=== PATIENT | female | born 1990 | race Caucasian/White ===

== ENCOUNTER 2025-02-08 07:05 | Emergency (ER) | payer OTHER, SELFPAY ==
[2025-02-08 07:15] VITALS: BP 137/85; PULSE 78; RESP 18; TEMP 36.9; O2SAT 97; BMI 34.2
--- NOTE | 2025-02-08 07:22 | XR_ITS ---
Examination: CT thoracic spine, without contrast. 2-D sagittal reconstructions. 2-D coronal reconstructions. 3-D reconstructions. Date and time of exam:February 08, 2025 0818 hours INDICATIONS: Upper back pain beginning 3 days ago CTDI: vol (mGy):45.6 DLP: (mGycm):1795 Technique: Multiple 1.25 mm axial sections of the thoracic spine without intravenous contrast have been obtained. 2-D sagittal and coronal reconstructions have been obtained. 3-D reconstructions have been obtained. Low dose protocols were performed. One or more of the following dose reduction techniques were used; automated exposure control, adjustment of the mA and/or KV according to patient size, use of iterative reconstruction technique. Findings: Adequate alignment thoracic vertebral bodies No thoracic vertebral body fracture Thoracic pedicles, laminae, transverse and posterior spinous processes intact Mild diffuse thoracic disc narrowing No focal thoracic disc protrusion IMPRESSION: No thoracic fracture No focal thoracic disc protrusion Mild diffuse thoracic degenerative disc disease If pain persists, consider MRI thoracic spine without contrast follow-up
[2025-02-08] MEDS: KETOROLAC INJ 60 MG/2 ML VIAL 30 MG IM (07:49)
[2025-02-08] MEDS: DEXAMETHASONE SOD PHOS INJ 10 MG/ML VIAL IM (07:51)
--- NOTE | 2025-02-08 08:39 | EDNOTE_ITS ---
ED Back Injury Pain RME/HPI General Chief Complaint: Extremity Injury, Upper Stated Complaint: RIGHT SHOULDER PAIN Time Seen by Provider: 02/08/25 07:08 Arrival date/time: 02/08/25 07:05 This is a case of 34-year-old female who came in in the emergency room due to mid back pain radiating to the right shoulder with tingling sensation no numbness no weakness for 1 week patient denies any injury or trauma denies any numbness weakness tingling sensation or incontinence to urine or stool Limitations: no limitations Related Data Previous Rx's ?Medication ?Instructions ?Recorded baclofen 10 mg tablet 10 mg PO TID PRN muscle spas m #20 02/08/25 tabs hydrocodone 5 mg-acetaminophen 325 1 tab PO Q6H PRN pa in #15 tabs 02/08/25 mg tablet ibuprofen 800 mg tablet 800 mg PO Q8H PRN pain #20 t abs 02/08/25 Allergies Allergy/AdvReac Type Severity Reaction Status Date / Time sulfamethoxazole Allergy Intermediate RASH Verified 01/31/14 10:09 trimethoprim Allergy Intermediate RASH Verified 01/31/14 10:09 Review of Systems Review of Systems Systems Reviewed: All systems reviewed, normal except as documented Constitutional Constitutional: Reports system reviewed and no additional complaints, except as documented ENT Ears, Nose, Mouth, and Throat: Denies neck pain Cardiovascular Cardiovascular: Reports system reviewed and no additional complaints, except as documented Gastrointestinal Gastrointestinal: Reports system reviewed and no additional complaints, except as documented Musculoskeletal Musculoskeletal: Reports system reviewed and no additional complaints, except as documented, Reports as per HPI, Denies abnormal gait, Denies arthralgias, Denies atrophy, Reports back pain, Denies deformity, Denies joint swelling, Denies limited range of motion, Denies loss of height, Denies muscle cramps, Denies muscle weakness, Denies myalgias, Denies neck pain, Denies numbness, Denies radiating pain into limb, Denies stiffness and Reports tingling Neurologic Neurologic: Reports system reviewed and no additional complaints, except as documented, Reports as per HPI, Denies abnormal gait, Denies numbness and Reports tingling Past Medical History Past Medical History CARDIAC: Negative Congestive Heart Failure RESPIRATORY: Negative Chronic Obstructive Pulmonary Disease (COPD) GENITOURINARY: Negative Renal Disease ENDOCRINE: Negative Diabetes Mellitus Type 1 or Diabetes Mellitus Type 2 Social History SMOKING STATUS: Never smoker ED Exam General Limitations: Present no limitations General appearance: Present alert and in no apparent distress; Absent appears intoxicated Head Head exam: Present atraumatic Eye Eye exam: Present normal appearance, PERRL and EOMI ENT ENT exam: Present normal exam, normal oropharynx and mucous membranes moist Neck Neck exam: Present normal inspection, full ROM and trachea midline; Absent tenderness, meningismus, lymphadenopathy or thyromegaly Chest Chest inspection: Present normal inspection and symmetric chest wall rise; Absent tenderness or rash Respiratory Respiratory exam: Present normal lung sounds bilaterally; Absent respiratory distress, wheezes, stridor, accessory muscle use or prolonged expiratory phase Cardiovascular Cardiovascular exam: Present regular rate, normal rhythm and normal heart sounds Abdominal Exam Abdominal exam: Present soft and normal bowel sounds Extremities Exam Extremities exam: Present normal inspection and full ROM Expanded Upper Extremity Exam Shoulder exam: Present normal inspection, full ROM and other (Full ROM neurovascular intact); Absent tenderness, swelling, abrasion, laceration, ecchymosis, deformity, crepitus, dislocation, erythema or tenderness over AC joint Back Exam Back exam: Present normal inspection, full ROM and tenderness (Mild tenderness on the thoracic area no crepitation no deformity no redness no paraspinal or paravertebral tenderness leg raise exam is normal no CVA tenderness); Absent CVA tenderness (R), CVA tenderness (L), muscle spasm, paraspinal tenderness, vertebral tenderness, rashes, sciatic notch tenderness (R), sciatic notch tenderness (L), straight leg raise (R) or straight leg raise (L) Neurological Exam Neurological exam: Present alert, oriented X3, CN II-XII intact, normal gait and reflexes normal; Absent motor sensory deficit Psychiatric Psychiatric exam: Present normal affect and normal mood Skin Skin exam: Present warm, dry, intact and normal color Course Quality Measures none Orders Category Date Time Status CT thoracic spine wo con Stat Exams 02/08/25 07:22 Completed Dexamethasone Inj [Decadron Inj] Med 02/08/25 07:22 Discontinued 10 mg IM X1 ONE Ketorolac Inj [Toradol Inj] Med 02/08/25 07:22 Discontinued 30 mg IM X1 ONE Vital Signs Vital signs: Vital Signs Temperature 98.4 F 02/08/25 07:15 Pulse Rate 78 02/08/25 07:15 Respiratory Rate 18 02/08/25 07:15 Blood Pressure 137/85 H 02/08/25 07:15 Pulse Oximetry (%) 97 02/08/25 07:15 Oxygen Delivery Method Room Air 02/08/25 07:15 Patient is afebrile not tachycardic not tachypneic BP stable not hypoxic oxygen saturation is 97% in room air Back Pain / Injury MDM Narrative MDM Narrative:: This is a case of 34-year-old female who came in in the emergency room due to mid back pain radiating to the right shoulder with tingling sensation no numbness no weakness for 1 week patient denies any injury or trauma denies any numbness weakness tingling sensation or incontinence to urine or stool Physical examination patient is awake alert oriented not in distress nontoxic looking patient noted to have mild to moderate tenderness on the thoracic area no crepitation no deformity no redness no paraspinal no paravertebral tenderness no sciatic notch tenderness straight leg exam is normal no CVA tenderness steady gait neurological exam is normal no signs and symptoms of cauda equina shoulder exam is normal and unremarkable ROM intact neurovascular intact CT scan of the thoracic area showed a DDD of the thoracic area patient was given dexamethasone and Toradol which patient pain improved and resolved I have a long discussion with the patient patient need to see a neurosurgeon for further evaluation of the DDD thoracic area and possible radicular quality on the right upper e xtremities for possible MRI to rule out herniated disc at the time of exam no signs and symptoms of cauda equina patient will also see pain management treatment doctor for pain control patient was advised to follow-up with PCP in 2 days for reevaluation and for any worsening symptoms such as numbness weakness tingling sensation incontinence to urine or stool she needs to return in the emergency room immediately or call 911 patient agreed with the treatment plan and discharge Patient was discharged with comfortable condition walking with stable gait. Patient verbalized no further complains explained diagnosis and answered patient question. Patient is comfortable with the proposed management plan including the need to follow up with his/her primary care physician and any specialist if applicable Discussed patient for any urgent condition or worsening sx, He/She needed to go to emergency room immediately or call 911. Patient acknowledge the responsibility to follow up as instructed and to monitor her/his symptoms. For any persistence of the symptoms for more than 3-5 days return precaution advised. Discussed the result of the test and was given printed discharge instruction Patient data External records reviewed:: [facility] previous records Clinical information provided by:: patient Social determinants that could affect healthcare access:: none Patient has the following chronic illnesses:: None How is presenting disease/condition affected by chronic disease/condition?: no chronic disease Evaluation data The following diagnostics were reviewed and interpreted by me:: other (specify) Lab and/or radiology exams considered but not ordered:: None Interpretation Summary: None Medications / Prescriptions Medications or Prescriptions considered but not ordered:: Given Medication administrations:: Medication Administration History Discontinued Medications Dexamethasone Sodium Phosphate (Dexamethasone Sod Phos Inj 10 Mg/Ml Vial) 10 mg IM X1 ONE Stop: 02/08/25 07:23 Last Admin: 02/08/25 07:51 Dose: 10 mg Documented By: ED Ketorolac Tromethamine (Ketorolac Inj 60 Mg/2 Ml Vial) 30 mg IM X1 ONE Stop: 02/08/25 07:23 Last Admin: 02/08/25 07:49 Dose: 30 mg Documented By: ED Given Consultations Consultation(s) initiated? (list below): No Diagnosis Differential diagnosis back pain/injury: sciatica and thoracic back pain Most likely diagnosis given after review of the tests above:: DDD thoracic with radiculopathy Admission Indicated Admission indicated?: not indicated Explain why admission is indicated or not indicated:: Not indicated Admission Request Was there a request for admission?: No Admission Attestation Admission request attestation: Not indicated Disposition Plan Disposition Plan: Discharge Discharge Attestation Discharge Attestation: The patient and all family members were given an opportunity to ask questions and understood the discharge instructions. Discharge instructions specifically effects, indications for sooner follow up or return to the emergency department, and the expected course of current diagnosis. Patient condition: Stable Discharge Plan Plan Patient Disposition: HOME (Self Care) Patient condition on transfer: Stable Prescriptions/Referrals Prescriptions/Med Rec: New ibuprofen 800 mg tablet 800 mg PO Q8H PRN (Reason: pain) Qty: 20 0RF hydrocodone-acetaminophen 5-325 mg tablet 1 tab PO Q6H MDD 4x a day PRN (Reason: pain) Qty: 15 0RF baclofen 10 mg tablet 10 mg PO TID PRN (Reason: muscle spasm) Qty: 20 0RF Referrals: Kendra Phan MD [Primary Care Provider] - In 1 week Problem List Clinical Impression: DDD (degenerative disc disease), thoracic, Radiculopathy affecting upper extremity, Right shoulder pain Patient/Caregiver Discharge Instructions Education Materials: Relieving Back Pain, ED Degenerative Disk Disease, ED Shoulder Pain, Uncertain Cause Additional Instructions: Follow-up with your primary care physician in 2 days for reevaluation and to be referred to neurosurgeon for further evaluation and treatment of DDD with radiculopathy on the thoracic area to have MRI to rule out herniated disc and pain management doctor for pain management control worsening symptoms or any emergent concerns such as numbness weakness tingling sensation incontinence to urine or stool call 911 or go to the nearest emergency room take your medication as directed ice pack and warm compress as needed for your pain Print Language: [place]an Stand Alone Forms: [employer] Award Info., Patient Portal Info Letter ARTURO/PIERRE Supervising Physician ARTURO/PIERRE Supervising Physician: dr patel
== END 2025-02-08 09:27 | disposition home or self-care (01) ==
PROVIDERS: Emergency Provider Emergency Medicine; PCP Internal Medicine
DX: M51.14 Intervertebral disc disorders with radiculopathy, thoracic region (principal); M25.511 Pain in right shoulder
CPT/HCPCS: 72128; 96372; 99284; J1100; J1885